=== PATIENT | female | born 1990 | race Caucasian/White ===

== ENCOUNTER 2020-09-12 01:39 | Emergency (ER) | payer SELFPAY ==
[~2020-09-12] VITALS: Ht 154.9 cm; Wt 59.0 kg
[2020-09-12 01:45] VITALS: BP_SYST 124
[2020-09-12] MEDS ORDERED: cefTRIAXone 1 GM VIAL IM ONE (02:00)
[2020-09-12] MEDS ORDERED: DOXYCYCLINE HYCLATE 100 MG CAPSULE PO ONE (02:00)
[2020-09-12 02:06] LABS: BILIRUBIN,URINE NEGATIVE (NEGATIVE); BLOOD, URINE NEGATIVE (NEGATIVE); CLARITY/URINE CLEAR (CLEAR); COLOR,URINE YELLOW (YELLOW); GLUCOSE,URINE NEGATIVE (NEGATIVE); KETONES,URINE NEGATIVE (NEGATIVE); LEUKOCYTE ESTERASE ,URINE TRACE (NEGATIVE); NITRITE, URINE NEGATIVE (NEGATIVE); PROTEIN URINE NEGATIVE (NEGATIVE); UROBILINOGEN,URINE 0.2 (0.2-1.0)
[2020-09-12] MEDS ORDERED: DOXYCYCLINE HYCLATE 100 MG CAPSULE ONE (02:06)
[2020-09-12] MEDS ORDERED: LIDOCAINE 1%, 20 ML MDV 20 ML ONE (02:06)
[2020-09-12 02:20] LABS: BACTERIA,URINE FEW /HPF (None Seen)
[2020-09-12 02:32] VITALS: BP_SYST 124
== END 2020-09-12 02:32 | disposition home or self-care (01) ==
LOC: SED 01:39
DX: N89.8 Other specified noninflammatory disorders of vagina (principal)
CPT/HCPCS: 81000; 81025; 87491; 87591; 96372; 99283; J0696; J2001